=== PATIENT | male | born 1990 | race Caucasian/White ===

== ENCOUNTER 2021-03-30 18:06 | Emergency (ER) | payer OTHER ==
[2021-03-30] MEDS ORDERED: BACTRIM DS TAB1 EACH PO (19:58)
== END 2021-03-30 21:30 | disposition home or self-care (01) ==
LOC: FER 18:06
DX: L02.212 Cutaneous abscess of back [any part, except buttock and flank] (principal)
CPT/HCPCS: 87070; 87205; J2001